=== PATIENT | female | born 1975 | race Caucasian/White ===

== ENCOUNTER 2018-01-26 09:56 | Observation (INO) | END 2018-01-27 15:40 | disposition home or self-care (01) ==

== ENCOUNTER 2018-06-29 17:25 | Observation (INO) | END 2018-07-01 13:11 | disposition home or self-care (01) ==

== ENCOUNTER 2019-05-10 06:20 | Inpatient (IN) | payer BC, OTHER ==
[~2019-05-10] VITALS: Ht 157.5 cm; Wt 67.5 kg
[2019-05-10] VITALS (29 sets, daily range): BP systolic 60–140; BP diastolic 58–85; PULSE 67–98; RESP 12–41; Ht 157.5 cm; Wt 67.5 kg
[~2019-05-10 06:20] MED LIST: CETI1TAB6 PO; CYCL10TA7 PO; ELET20TA PO; SIMV20TA PO; TOPI25CA2 PO; TRAM50TA PO
[2019-05-10] MEDS ORDERED: CEFAZOLIN 2 GM/50 ML (PMX) 50 ML IVPB ONE (07:00)
[2019-05-10] MEDS ORDERED: LACTATED RINGER'S 1,000 ML (ENTER RATE) IV ONE (07:00)
[2019-05-10] MEDS ORDERED: POLYMYXIN/BACITRACIN 1L IRRIG ONE (07:07)
[2019-05-10] MEDS ORDERED: GELATIN SIZE 100 SPONGE ONE (07:07)
[2019-05-10] MEDS ORDERED: THROMBIN 5000 UNIT VIAL ONE (07:07)
[2019-05-10] MEDS ORDERED: SURGIFOAM POWDER 1 GM KIT ONE (07:07)
[2019-05-10] MEDS ORDERED: BUPIVACAINE 0.25%/EPI (SDV) 30 ML INJ ONE ×2 (07:07→11:36)
--- NOTE | 2019-05-10 07:21 | HPN ---
Date/Time of Note Date/Time of Note DATE: 05/10/19 TIME: 07:21 Interval H&P Admission Note Pt. seen H&P reviewed: No system changes BLAIRE SINGH MD May 10, 2019 07:21
[2019-05-10] MEDS ORDERED: GABA300C16 ORAL (07:26)
[2019-05-10] MEDS ORDERED: MELO15TA30 ORAL (07:26)
[2019-05-10] MEDS ORDERED: TRAM50TA2 ORAL (07:26)
[2019-05-10] MEDS ORDERED: MULTI PO (07:26)
[2019-05-10] MEDS ORDERED: TOPI50TA13 ORAL (07:26)
--- NOTE | 2019-05-10 07:29 | PREAC ---
Date/Time of Note Date/Time of Note DATE: 05/10/19 TIME: 07:28 Anesthesia Eval and Record Evaluation Time Pre-Procedure Interview DATE: 05/10/19 TIME: 07:28 Age 44 Sex female NPO: 8 hrs Preoperative diagnosis disc degenerative disorder Planned procedure [id number] anterior fusion Past Medical History Past Medical History: Includes Cardio: Dyslipidemia Pulm: Smoking Hx Neuro: Peripheral neuropathy Musculoskeletal: Osteoarthritis Surgery & Anesthesia Issues No known issue Meds Anticoagulation: No Beta Jessica within 24 hr: No Reason Beta Jessica not given: Pt. not on B-Jessica Reported Medications Topiramate* (Topiramate*) 50 Mg Tablet, 1 TAB ORAL QHS 05/10/19 Multivitamins* (Theragran*) 1 Tab Tab, 1 TAB PO DAILY, TAB 05/10/19 Meloxicam* (Mobic*) 15 Mg Tablet, 1 TAB ORAL QPM 05/10/19 Tramadol HCl (Tramadol HCl) 50 Mg Tablet, 1 TAB ORAL BID 05/10/19 Gabapentin* (Gabapentin*) 300 Mg Capsule, 1 CAP ORAL BID 05/10/19 Eletriptan Hydrobromide (Relpax) 20 Mg Tablet, 40-80 MG PO DAILY PRN for MIGRANES, TAB 06/29/18 Cyclobenzaprine Hcl* (Cyclobenzaprine Hcl*) 10 Mg Tablet, 10 MG PO BID PRN for MUSCLE SPASMS, #60 TAB 06/29/18 Simvastatin* (Zocor*) 20 Mg Tablet, 20 MG PO QHS, #30 TAB 06/29/18 Discontinued Reported Medications Cetirizine/Pseudoephedrine (Zyrtec-D) 5-120 Mg Tab.er.12h, 1 TAB PO DAILY PRN for ALLERGIC REACTION, TAB 06/29/18 Tramadol Hcl* (Ultram*) 50 Mg Tablet, 50 MG PO BID PRN for PAIN, TAB 06/29/18 Topiramate* (Topiramate*) 25 Mg Cap.sprink, 50 MG PO DAILY, CAP 06/29/18 Current Medications Cefazolin Sodium/ Dextrose 50 ml @ 100 mls/hr PRE-OP ONCE IVPB ; Start 05/10/19 at 07:00; Stop 05/10/19 at 07:29 Meds reviewed: Yes Allergies Coded Allergies: No Known Allergies (Verified Allergy, Unknown, 05/10/19) Allergies Reviewed: Yes Labs/Studies Labs Reviewed: Reviewed by anesthesiologist test: Negative Pre-procedure Exam Last vitals Vital Signs Date Temp Pulse Resp B/P (MAP) Pulse Ox O2 O2 Flow FiO2 Time Delivery Rate 05/10/19 97.3 82 18 112/72 93 07:14 (85) Airway: Adequate mouth opening, Adequate thyromental dist Mallampati: Mallampati III Teeth: Normal Lung: Normal Heart: Normal ASA Physical Status ASA physical status: 2 Emergency: None Pre-operative Attestations Prior to commencing anesthesia and surgery, the patient was re-evaluated, there was verification of: *The patient's identity *The results of appropriate recent lab work and preoperative vital signs *The above evaluation not changing prior to induction *Anesthetic plan, risk benefits, alternative and complications discussed with pa tient/family; questions answered; patient/family understands, accepts and wishes to proceed. JOANNE MEEHAN DO May 10, 2019 07:29
[2019-05-10] MEDS ORDERED: MEPERIDINE 25 MG INJ IV PRN (07:30)
[2019-05-10] MEDS ORDERED: ONDANSETRON 4 MG INJ IV PRN ×2 (07:30→14:00)
[2019-05-10] MEDS ORDERED: LABETALOL HCL 20MG INJ IV PRN (07:30)
[2019-05-10] MEDS ORDERED: LORAZEPAM 2 MG INJ IV PRN (07:30)
[2019-05-10] MEDS ORDERED: HYDROmorphONE 1 MG/5 ML IV SYRINGE IV PRN ×3 (07:30)
[2019-05-10] MEDS ORDERED: LIDOCAINE 1% (MDV) 20 ML INJ ONE (07:49)
[2019-05-10] MEDS ORDERED: EPINEPHrine 0.1 MG/ML SYG ONE (07:49)
[2019-05-10] MEDS ORDERED: PHENYLephrine (100 MCG/ML) 10ML SYG ONE (07:49)
[2019-05-10] MEDS ORDERED: CA CHLORIDE 10% 10 ML SYRINGE ONE (07:49)
[2019-05-10] MEDS ORDERED: PROPOFOL 20 ML ONE (07:49)
[2019-05-10] MEDS ORDERED: MIDAZOLAM 1 MG/ML 2 ML INJ ONE ×2 (07:49→12:16)
[2019-05-10] MEDS ORDERED: SUCCINYLCHOLINE CHLORIDE 100 MG/5 ML SYG IV ONE (07:49)
[2019-05-10] MEDS ORDERED: DESFLURANE 15 MIN ONE (07:49)
[2019-05-10] MEDS ORDERED: DEXAMETHASONE 4 MG/ML 5 ML INJ ONE (08:16)
[2019-05-10] MEDS ORDERED: CEFAZOLIN 1 GM INJ ONE ×2 (08:16→12:50)
[2019-05-10] MEDS ORDERED: ONDANSETRON 4 MG INJ ONE ×2 (08:16→12:50)
[2019-05-10] MEDS ORDERED: PHENYLephrine 10 MG INJ ONE ×2 (09:35→12:16)
[2019-05-10] MEDS ORDERED: ROPIVACAINE 0.5 % 30 ML VIAL ONE (12:59)
--- NOTE | 2019-05-10 13:32 | OPR ---
Date/Time of Note Date/Time of Note DATE: 05/10/19 TIME: 13:21 Operative Report Free Text/Dictation DATE OF OPERATION: 05/10/2019 PREOPERATIVE DIAGNOSES: 1. Grade 1 L4-5 degenerative spondylolisthesis with stenosis and left sided L4 and L5 radiculopathy POSTOPERATIVE DIAGNOSES: 1. Grade 1 L4-5 degenerative spondylolisthesis with stenosis and left sided L4 and L5 radiculopathy OPERATION PERFORMED: 1. Anterior lumbar interbody fusion via transpsoas approach L4-5 2. Placement of anterior interbody device L4-5 3. Placement of posterior spinal segmental instrumentation L4-5 4. Posterior spinal fusion L4-5 5. Use of morselized allograft bone. 6. Interpretation of neuromonitoring SURGEON: Blaire Singh MD ANESTHESIA: General endotracheal. ESTIMATED BLOOD LOSS: <50 cc SURGICAL INDICATION: The patient is a 44 year-old female who presents with an increasing history of back and left sided leg pain. She has a past surgical hist ory significant for a L4-5 left sided decompression and microdiskectomy x2. The patient was found to have an unstable spondylolisthesis at L4-5 with associated stenosis. The patient had failed conservative treatments. Risks, benefits and alternatives to an anterior and posterior spinal fusion with instrumentation were explained to the patient including but not exclusive of bleeding, infection, visceral injury, nerve injury, nonunion, instrumentation failure, lack of symptom relief, myocardial infarction, stroke, and pulmonary embolism, and they wished to proceed. DESCRIPTION OF TECHNIQUE: The patient was identified in the preoperative area and taken to the operating room. Rapid induction of general endotracheal anesthesia was performed. Patient was given 2 g of cefazolin for prophylaxis. The patient was then placed in the (left side up) lateral decubitus position with an axillary roll placed. Tape was applied across the torso and down the legs for further stabilization of the patient to the table. The left flank was then prepped and draped in the usual sterile manner. A time out was held. Using intraoperative fluoroscopy, the L4-5 disc space was clearly identified. The skin was injected using 0.25% Marcaine with epinephrine. A posterolateral incision was then created using a 10 blade. Further dissection through soft tissue was performed bluntly using Metzenbaum scissors to enter the retroperitoneal space. Manual palpation was used to palpate the peritoneum and the peritoneum was swept in a ventral direction. A direct lateral incision was then created using a 10 blade. Further dissection through soft tissue was again performed bluntly using Metzenbaum scissors, guided manually through the posterolateral incision. The retroperitoneal space was then directly entered. The starting dilator was guided down to the lateral aspect of the psoas muscle, while protecting the peritoneum. Both intraoperative fluoroscopy, as well as neuromonitoring were used to guide the dilator down to the lateral aspect of the disc space, while avoiding the lumbar plexus. A guidewire was then passed through the dilator into the disc space itself. Sequential dilation was performed. A final retractor was applied and stabilized to the table. The retractor was opened gently, just enough to visualize the lateral aspect of the disc space. Fibers of the psoas muscle were directly visualized and gently swept ventrally using a retractor. Again, the surgical field was probe to ensure that no neural elements remained in the surgical field itself. Attention was turned toward the anterior lumbar interbody fusion at L4-5. The lateral anulus was incised using a 15 blade. Disk material was then removed using pituitary rongeurs and curettes. Care was taken to release the contralateral anulus using Fan elevators. The endplates were then decorticated using a rasp. Attention was turned toward placement of the anterior interbody device at L4-5. Trial spacers were inserted. A 12 x 18 x 50 mm lordotic tab PEEK cage was then selected and filled using Osteocel pro morcellized allograft bone with stem cells. The tab cage was used to help prevent cage migration given instability at this level. The cage was inserted into the disc space and malleted into place over slides. AP and lateral views of fluoroscopy confirmed the appropriate placement of the cage. The cage was stabilized with a 40 mm screw at L4. The wound was irrigated copiously using normal saline. The fascia was then closed using 0 Vicryl in interrupted fashion. Subcutaneous tissue was closed using 2-0 Vicryl in interrupted fashion. Skin was closed using a running 4-0 Monocryl stitch. The wounds were dressed using Dermabond, sterile gauze and Tegaderm. Attention was turned toward placement of posterior spinal segmental instrumentation at L4-5 after the patient was transferred to a Iam table in prone position . The surgical site was prepped and draped is standard fashion. A time out was held. Using intraoperative fluoroscopy, the pedicles were identified at each level. Care was taken to alter the fluoroscopic view to have a true AP at each level. Jamshidi needles were then passed down to the lateral aspect of the pedicles through stab incisions. The Jamshidi needles were malleted into the pedicles. Care was taken to ensure that the needles did not pass the medial wall of the pedicle on the AP view prior to checking that the needle was past the posterior wall of the vertebral body. The needles were then malleted further into the vertebral bodies themselves. Guidewires were passed through the needles and the needles were removed. Taps were applied over the guidewires. Screws were then placed bilaterally into the vertebral bodies. AP a nd lateral views confirmed appropriate placement of the instrumentation. Attention was turned toward the posterior spinal fusion at L4-5. Rods were selected of the appropriate length and placed into the screw heads. End caps were applied and final tightening was performed using a [id number]-azavbh wrench. The exposed the facet joints were decorticated using a high-speed bur. A small remaining amount of Osteocel pro was placed into the facet joints to facilitate the posterior fusion. The wound was irrigated copiously using normal saline. The fascia was then closed using 0 Vicryl in interrupted fashion. Subcutaneous tissue was closed using 2-0 Vicryl in interrupted fashion. Skin was closed using a running 4-0 Monocryl stitch. The wounds were dressed using Dermabond, sterile gauze and Tegaderm. The patient was returned to the supine position. The patient was extubated immediately postoperatively and taken to the recovery room in stable condition. IMPLANTS USED: 1. NuVasive PEEK XLIF cage [id number] lordotic tab cage w/ 40mm L4 screw 2. NuVasive percutaneous pedicle screw system; 6.5 x40 mm x4 (L4) 3. 40mm rods x 2 4. Osteocel pro morcellized allograft bone with stem cells. Procedure Date: May 10, 2019 Preoperative Diagnosis 1. Grade 1 L4-5 degenerative spondylolisthesis with stenosis and left sided L4 and L5 radiculopathy Postoperative Diagnosis 1. Grade 1 L4-5 degenerative spondylolisthesis with stenosis and left sided L4 and L5 radiculopathy Operation/Procedure Performed 1. Anterior lumbar interbody fusion via transpsoas approach L4-5 2. Placement of anterior interbody device L4-5 3. Placement of posterior spinal segmental instrumentation L4-5 4. Posterior spinal fusion L4-5 5. Use of morselized allograft bone. 6. Interpretation of neuromonitoring Surgeon see signature line Sales Service Representative BERONICA Muñoz Anesthesia Type: general Estimated Blood Loss: 10 - 50 ml's Transfusion none Specimen none Grafts/Implants IMPLANTS USED: 1. NuVasive PEEK XLIF cage [id number] lordotic tab cage w/ 40mm L4 screw 2. NuVasive percutaneous pedicle screw system; 6.5 x40 mm x4 (L4) 3. 40mm rods x 2 4. Osteocel pro morcellized allograft bone with stem cells. Complications none Pt Condition Post Procedure: stable Disposition: PACU Procedure Description The patient was identified in the preoperative area and taken to the operating room. Rapid induction of general endotracheal anesthesia was performed. Patient was given 2 g of cefazolin for prophylaxis. The patient was then placed in the (left side up) lateral decubitus position with an axillary roll placed. Tape was applied across the torso and down the legs for further stabilization of the patient to the table. The left flank was then prepped and draped in the usual sterile manner. A time out was held. Using intraoperative fluoroscopy, the L4-5 disc space was clearly identified. The skin was injected using 0.25% Marcaine with epinephrine. A posterolateral i ncision was then created using a 10 blade. Further dissection through soft tissue was performed bluntly using Metzenbaum scissors to enter the retroperitoneal space. Manual palpation was used to palpate the peritoneum and the peritoneum was swept in a ventral direction. A direct lateral incision was then created using a 10 blade. Further dissection through soft tissue was again performed bluntly using Metzenbaum scissors, guided manually through the posterolateral incision. The retroperitoneal space was then directly entered. The starting dilator was guided down to the lateral aspect of the psoas muscle, while protecting the peritoneum. Both intraoperative fluoroscopy, as well as neuromonitoring were used to guide the dilator down to the lateral aspect of the disc space, while avoiding the lumbar plexus. A guidewire was then passed through the dilator into the disc space itself. Sequential dilation was performed. A final retractor was applied and stabilized to the table. The retractor was opened gently, just enough to visualize the lateral aspect of the disc space. Fibers of the psoas muscle were directly visualized and gently swept ventrally using a retractor. Again, the surgical field was probe to ensure that no neural elements remained in the surgical field itself. Attention was turned toward the anterior lumbar interbody fusion at L4-5. The lateral anulus was incised using a 15 blade. Disk material was then removed using pituitary rongeurs and curettes. Care was taken to release the contralateral anulus using Fan elevators. The endplates were then decorticated using a rasp. Attention was turned toward placement of the anterior interbody device at L4-5. Trial spacers were inserted. A 12 x 18 x 50 mm lordotic tab PEEK cage was then selected and filled using Osteocel pro morcellized allograft bone with stem cells. The tab cage was used to help prevent cage migration given instability at this level. The cage was inserted into the disc space and malleted into place over slides. AP and lateral views of fluoroscopy confirmed the appropriate placement of the cage. The cage was stabilized with a 40 mm screw at L4. The wound was irrigated copiously using normal saline. The fascia was then closed using 0 Vicryl in interrupted fashion. Subcutaneous tissue was closed using 2-0 Vicryl in interrupted fashion. Skin was closed using a running 4-0 Monocryl stitch. The wounds were dressed using Dermabond, sterile gauze and Tegaderm. Attention was turned toward placement of posterior spinal segmental instrumentation at L4-5 after the patient was transferred to a Iam table in prone position . The surgical site was prepped and draped is standard fashion. A time out was held. Using intraoperative fluoroscopy, the pedicles were identified at each level. Care was taken to alter the fluoroscopic view to have a true AP at each level. Jamshidi needles were then passed down to the lateral aspect of the pedicles through stab incisions. The Jamshidi needles were malleted into the pedicles. Care was taken to ensure that the needles did not pass the medial wall of the pedicle on the AP view prior to checking that the needle was past the posterior wall of the vertebral body. The needles were then malleted further into the vertebral bodies themselves. Guidewires were passed through the needles and the needles were removed. Taps were applied over the guidewires. Screws were then placed bilaterally into the vertebral bodies. AP and lateral views confirmed appropriate placement of the instrumentation. Attention was turned toward the posterior spinal fusion at L4-5. Rods were selected of the appropriate length and placed into the screw heads. End caps were applied and final tightening was performed using a [id number]-yrzzmv wrench. The exposed the facet joints were decorticated using a high-speed bur. A small remaining amount of Osteocel pro was placed into the facet joints to facilitate the posterior fusion. The wound was irrigated copiously using normal saline. The fascia was then closed using 0 Vicryl in interrupted fashion. Subcutaneous tissue was closed using 2-0 Vicryl in interrupted fashion. Skin was closed using a running 4-0 Monocryl stitch. The wounds were dressed using Dermabond, sterile gauze and Tegaderm. The patient was returned to the supine position. The patient was extubated immediately postoperatively and taken to the recovery room in stable condition. BLAIRE SINGH MD May 10, 2019 13:32
--- NOTE | 2019-05-10 13:57 | PAC ---
Date/Time of Note Date/Time of Note DATE: 05/10/19 TIME: 13:56 Post-Anesthesia Notes Post-Anesthesia Note Last documented vital signs Vital Signs Date Temp Pulse Resp B/P (MAP) Pulse Ox O2 O2 Flow FiO2 Time Delivery Rate 05/10/19 97.9 90 18 110/65 97 1357 Activity: WNL Respiratory function: WNL Cardiovascular function: WNL Mental status: Baseline Pain reasonably controlled: Yes Hydration appropriate: Yes Nausea/Vomiting absent: Yes JOANNE MEEHAN DO May 10, 2019 13:57
[2019-05-10] MEDS ORDERED: PROCHLORPERAZINE 10 MG TAB PO PRN (14:00)
[2019-05-10] MEDS ORDERED: HYDROCODONE/APAP (5/325) TAB PO PRN (14:00)
[2019-05-10] MEDS ORDERED: AL HYDROX/MG HYDROX/SIMETH 30 ML CUP PO PRN (14:00)
[2019-05-10] MEDS ORDERED: NALOXONE (0.4 MG/ML) INJ IV PRN (14:00)
[2019-05-10] MEDS ORDERED: ACETAMINOPHEN 325 MG TAB PO PRN (14:00)
[2019-05-10] MEDS: HYDROmorphONE 0.2 MG/ML PCA IV SCH (14:27)
[2019-05-10] MEDS ORDERED: SUMATRIPTAN 50 MG TAB PO ONE (15:00)
[2019-05-10] MEDS ORDERED: DEXAMETHASONE 10 MG/ML 1 ML INJ IV ONE (16:00)
[2019-05-10] MEDS: CYCLOBENZAPRINE 10 MG TAB PO PRN (18:10)
[2019-05-10] MEDS: CEFAZOLIN 1 GM/50 ML (PMX) 50 ML IVPB SCH ×2 (18:10→23:26)
[2019-05-10] MEDS: GABAPENTIN 300 MG CAP PO SCH (20:34)
[2019-05-10] MEDS: ATORVASTATIN 10 MG TAB PO SCH (20:34)
[2019-05-10] MEDS: TOPIRAMATE 25 MG TAB PO SCH (20:34)
[2019-05-10] MEDS: D5W-0.45 NACL + KCL 20 MEQ 1,000 ML IV SCH (20:34)
--- NOTE | 2019-05-11 00:21 | CONS ---
DATE OF ADMISSION: 05/10/2019 DATE OF CONSULTATION: 05/10/2019 Thank you very much for allowing me to evaluate this 44-year-old female who just underwent lumbar francisco k surgery. HISTORICAL EVENTS: As you well know, this patient has had unrelenting low back pain, you having eval uated her last in April of 2019. At that time, she indicated she had a prior left L4-L5 decompression , having had a surgery in 06/2018, revision in 2017. Because of continued left-sided leg pain and re lated L5 nerve root irritation and because of failure of conservative therapy to provide significant relief, elected to proceed with repeat surgical intervention. Presently in recovery, she is reasonab ly comfortable without cough, wheezing, shortness of breath, nausea, vomiting, abdominal or chest dona n. PAST MEDICAL HISTORY: Hyperlipidemia and migraine headaches, history of abnormal glucose tolerance, prior cholecystectomy and . SOCIAL HISTORY: She does drink wine. She does not smoke. FAMILY HISTORY: Positive for hyperlipidemia, diabetes. MEDICATIONS: Prior to admission: 1. Cyclobenzaprine 10 mg t.i.d. p.r.n. 2. Relpax 40 mg per day p.r.n. 3. Tramadol 50 mg b.i.d. p.r.n. 4. Topamax 50 mg at night. 5. Zocor 20 mg. 6. Gabapentin 300 mg. t.i.d. 7. Meloxicam 7.5 per day. 8. Minivelle 0.025 mg per day. 9. Vitamin D3 of 50,000 units per day. PHYSICAL EXAMINATION: GENERAL: [place] female in no acute distress. VITAL SIGNS: BP 114/78, pulse 72, respirations were 18, afebrile. EYES: Extraocular muscles were full. NOSE, MOUTH, AND THROAT: Normal. NECK: Supple. There was no jugular venous distention, thyroid enlargement or adenopathy. Carotids 2+, no bruits. LUNGS: Clear. HEART: Rhythm regular, no murmur. No third or fourth sound. ABDOMEN: Nontender. Liver and spleen were not palpable. No mass or tenderness were noted. EXTREMITIES: No edema, no calf tenderness. NEUROLOGIC: No lateralizing motor weakness. IMPRESSION: 1. Stable postop lumbar back surgery. 2. History of migraine headaches. Will reorder Relpax or equivalent if indeed recurrent migraine he adache occurs. 3. Hyperlipidemia. We will continue statin therapy. 4. We will follow daily for signs and symptoms of thromboembolic disease. Dictated By: MICHELLE WILLOUGHBY MD MR/MARTIN Conf#: [id number] DID#: [id number] CC: BLAIRE SINGH MD;*EndCC*
[2019-05-11] MEDS: D5W-0.45 NACL + KCL 20 MEQ 1,000 ML IV SCH ×2 (06:05→17:31)
[2019-05-11] MEDS: CEFAZOLIN 1 GM/50 ML (PMX) 50 ML IVPB SCH ×2 (06:05→11:58)
--- NOTE | 2019-05-11 08:18 | CONS ---
Assessment/Plan Assessment/Plan Assessment/Plan (Daily) 1. Stable post op lumbar back surgery 2. Hx elev chol, statin continued 3. Labs rev 4. Hx migraine PAL, quiescent Consultation Date/Type/Reason Admit Date/Time May 10, 2019 at 06:20 Initial Consult Date Date/Time of Note DATE: 05/11/19 TIME: 08:16 Detailed Summary Respiratory: No shortness of breath Cardiovascular: No chest pain, No orthopenea Gastrointestinal: no complaints Genitourinary: other (good in place) Musculoskeletal: back pain (moderate) Exam/Review of Systems Exam Vitals Vital Signs Date Temp Pulse Resp B/P (MAP) Pulse Ox O2 O2 Flow FiO2 Time Delivery Rate 05/11/19 17 06:02 05/10/19 98.0 68 112/73 99 Nasal 2.0 23:22 (86) Cannula Intake and Output 05/10/19 05/10/19 05/11/19 1515:00 23:00 07:00 IntakeIntake Total 5000 ml 1390 ml 1450 ml OutputOutput Total 1930 ml 800 ml 2500 ml BalanceBalance 3070 ml 590 ml -1050 ml Neck: No jvd Respiratory: clear to auscultation Cardiovascular: regular rate and rhythm Gastrointestinal: soft Extremities: No edema, No tenderness Results Result Diagram: 05/11/19 0441 05/11/19 0441 Results 24hrs Laboratory Tests Test 05/11/19 04:41 White Blood Count 9.3 # Red Blood Count 3.73 L Hemoglobin 11.0 L Hematocrit 33.0 L Mean Corpuscular Volume 88.5 Mean Corpuscular Hemoglobin 29.5 Mean Corpuscular Hemoglobin Concent 33.3 Red Cell Distribution Width 12.8 Platelet Count 137 #L Mean Platelet Volume 10.4 Immature Granulocytes % 0.400 Neutrophils % 77.0 Lymphocytes % 14.7 L Monocytes % 7.8 Eosinophils % 0.0 Basophils % 0.1 Nucleated Red Blood Cells % 0.0 Immature Granulocytes # 0.040 H Neutrophils # 7.2 Lymphocytes # 1.4 Monocytes # 0.7 Eosinophils # 0.0 Basophils # 0.0 Nucleated Red Blood Cells # 0.0 Sodium Level 146 H Potassium Level 4.6 Chloride Level 113 H Carbon Dioxide Level 26 Anion Gap 7 Blood Urea Nitrogen 6 L Creatinine 0.60 Est Glomerular Filtrat Rate mL/min > 60 Glucose Level 134 Calcium Level 9.1 Phosphorus Level 3.6 Magnesium Level 1.9 Medications Medication Current Medications Acetaminophen/ Hydrocodone Bitart ([place] (5/325)) 1 tab Q4H PRN PO .PAIN 1-5; Start 05/10/19 at 14:00 Acetaminophen/ Hydrocodone Bitart ([place] (5/325)) 2 tab Q4H PRN PO .PAIN 6-10; Start 05/10/19 at 14:00 Cefazolin Sodium 50 ml @ 100 mls/hr Q6 IVPB Last administered on 05/11/19at 06:05; Admin Dose 100 MLS/HR; Start 05/10/19 at 18:00; Stop 05/11/19 at 12:29 Prochlorperazine (Compazine) 10 mg Q4H PRN PO NAUSEA/VOMITING; Start 05/10/19 at 14:00 Ondansetron HCl (Zofran Inj) 4 mg Q6H PRN IV NAUSEA/VOMITING Last administered on 05/10/19at 18:10; Admin Dose 4 MG; Start 05/10/19 at 14:00 Al Hydrox/Mg Hydrox/Simethicone (Mag-Al Plus) 15 ml Q4H PRN PO .CONSTIPATION; Start 05/10/19 at 14:00 Docusate Sodium (Colace) 100 mg BID PO ; Start 05/11/19 at 09:00 Acetaminophen (Tylenol Tab) 650 mg Q4H PRN PO TEMP GREATER THAN 101F OR PAL; Start 05/10/19 at 14:00 IV Flush (NS 3 ml) 3 ml PER PROTOCOL IV ; Start 05/10/19 at 14:00 Hydromorphone HCl (Dilaudid BEVERAGE DISTILLER) Q4PCA IV Last administered on 05/10/19at 14:27; Admin Dose 6 MG; Start 05/10/19 at 14:00 Naloxone HCl (Narcan) 0.2 mg Q2M PRN IV RR 8 BREATHS/MIN OR LESS; Start 05/10/19 at 14:00 Cyclobenzaprine HCl (Flexeril) 10 mg BID PRN PO MUSCLE SPASMS Last administered on 05/10/19at 18:10; Admin Dose 10 MG; Start 05/10/19 at 16:00 Gabapentin (Neurontin) 300 mg BID PO Last administered on 05/10/19at 20:34; Admin Dose 300 MG; Start 05/10/19 at 21:00 Miscellaneous Information 40 mg DAILY PRN PO MIGRANES; Start 05/10/19 at 16:00; Status UNV Atorvastatin Calcium (Lipitor) 10 mg QHS PO Last administered on 05/10/19at 20:34; Admin Dose 10 MG; Start 05/10/19 at 21:00 Topiramate (Topamax) 50 mg HS PO Last administered on 05/10/19at 20:34; Admin Dose 50 MG; Start 05/10/19 at 21:00 Potassium Chloride/Dextrose/ Sod Cl 1,000 ml @ 100 mls/hr Q10H IV Last admi nistered on 05/11/19at 06:05; Admin Dose 100 MLS/HR; Start 05/10/19 at 17:30 MICHELLE WILLOUGHBY MD May 11, 2019 08:17
[2019-05-11] MEDS ORDERED: DEXAMETHASONE 10 MG/ML 1 ML INJ IV ONE (09:00)
[2019-05-11] MEDS: DOCUSATE SODIUM 100 MG CAP PO SCH ×2 (09:46→22:17)
[2019-05-11] MEDS: GABAPENTIN 300 MG CAP PO SCH ×2 (09:46→22:17)
[2019-05-11] MEDS ORDERED: SUMATRIPTAN 50 MG TAB PO SCH (10:00)
[2019-05-11] MEDS ORDERED: SUMATRIPTAN 50 MG TAB PO ONE (10:00)
[2019-05-11] MEDS: SUMATRIPTAN 50 MG TAB PO PRN ×2 (10:11→11:58)
--- NOTE | 2019-05-11 12:36 | CONS ---
Consultation Date/Type/Reason Admit Date/Time May 10, 2019 at 06:20 Initial Consult Date Date/Time of Note DATE: 05/11/19 TIME: 12:34 24 HR Interval Summary Free Text/Dictation S: 44 yo Female POD#1 s/p L4-5 lateral (left side up) interbody fusion w/ PSIF. patient tolerating a regular diet. pain controlled w/ dilaudid STITCHER FEEDER. No acute events over-night. Complains of left hip pain at side of approach. O: Vital Signs Date Temp Pulse Resp B/P (MAP) Pulse Ox O2 O2 Flow FiO2 Time Delivery Rate 05/11/19 06:02 Gen: AAOx3, NAD Spine: dressing C/D/I, 5/5 Right HF/KE/TA/GS, Left LE 3/5 HF, 3+/5 KE, 4/5 TA/GS/EHL A/P: 44 yo Female POD#1 s/p L4-5 lateral (left side up) interbody fusion w/ PSIF. Left HF and KE weakness likely secondary to approach (left sided transpsas) 1. continue STITCHER FEEDER 2. Continue good 3. OOB w/ PT 4. appreciate med recs Exam/Review of Systems Exam Vitals Vital Signs Date Temp Pulse Resp B/P (MAP) Pulse Ox O2 O2 Flow FiO2 Time Delivery Rate 05/11/19 17 06:02 05/10/19 98.0 68 112/73 99 Nasal 2.0 23:22 (86) Cannula Intake and Output 05/10/19 05/10/19 05/11/19 1515:00 23:00 07:00 IntakeIntake Total 5000 ml 1390 ml 1450 ml OutputOutput Total 1930 ml 800 ml 2500 ml BalanceBalance 3070 ml 590 ml -1050 ml Results Result Diagram: 05/11/19 0441 05/11/19 0441 Results 24hrs Laboratory Tests Test 05/11/19 04:41 White Blood Count 9.3 # Red Blood Count 3.73 L Hemoglobin 11.0 L Hematocrit 33.0 L Mean Corpuscular Volume 88.5 Mean Corpuscular Hemoglobin 29.5 Mean Corpuscular Hemoglobin Concent 33.3 Red Cell Distribution Width 12.8 Platelet Count 137 #L Mean Platelet Volume 10.4 Immature Granulocytes % 0.400 Neutrophils % 77.0 Lymphocytes % 14.7 L Monocytes % 7.8 Eosinophils % 0.0 Basophils % 0.1 Nucleated Red Blood Cells % 0.0 Immature Granulocytes # 0.040 H Neutrophils # 7.2 Lymphocytes # 1.4 Monocytes # 0.7 Eosinophils # 0.0 Basophils # 0.0 Nucleated Red Blood Cells # 0.0 Sodium Level 146 H Potassium Level 4.6 Chloride Level 113 H Carbon Dioxide Level 26 Anion Gap 7 Blood Urea Nitrogen 6 L Creatinine 0.60 Est Glomerular Filtrat Rate mL/min > 60 Glucose Level 134 Calcium Level 9.1 Phosphorus Level 3.6 Magnesium Level 1.9 Medications Medication Current Medications Acetaminophen/ Hydrocodone Bitart ([place] (5/325)) 1 tab Q4H PRN PO .PAIN 1-5; Start 05/10/19 at 14:00 Acetaminophen/ Hydrocodone Bitart ([place] (5/325)) 2 tab Q4H PRN PO .PAIN 6-10; Start 05/10/19 at 14:00 Prochlorperazine (Compazine) 10 mg Q4H PRN PO NAUSEA/VOMITING; Start 05/10/19 at 14:00 Ondansetron HCl (Zofran Inj) 4 mg Q6H PRN IV NAUSEA/VOMITING Last administered on 05/10/19at 18:10; Admin Dose 4 MG; Start 05/10/19 at 14:00 Al Hydrox/Mg Hydrox/Simethicone (Mag-Al Plus) 15 ml Q4H PRN PO .CONSTIPATION; Start 05/10/19 at 14:00 Docusate Sodium (Colace) 100 mg BID PO Last administered on 05/11/19at 09:46; Ad min Dose 100 MG; Start 05/11/19 at 09:00 Acetaminophen (Tylenol Tab) 650 mg Q4H PRN PO TEMP GREATER THAN 101F OR PAL; Start 05/10/19 at 14:00 IV Flush (NS 3 ml) 3 ml PER PROTOCOL IV ; Start 05/10/19 at 14:00 Hydromorphone HCl (Dilaudid STITCHER FEEDER) Q4PCA IV Last administered on 05/10/19at 14:27; Admin Dose 6 MG; Start 05/10/19 at 14:00 Naloxone HCl (Narcan) 0.2 mg Q2M PRN IV RR 8 BREATHS/MIN OR LESS; Start 05/10/19 at 14:00 Cyclobenzaprine HCl (Flexeril) 10 mg BID PRN PO MUSCLE SPASMS Last administered on 05/10/19 18:10; Admin Dose 10 MG; Start 05/10/19 at 16:00 Gabapentin (Neurontin) 300 mg BID PO Last administered on 05/11/19 09:46; Admin Dose 300 MG; Start 05/10/19 at 21:00 Miscellaneous Information 40 mg DAILY PRN PO MIGRANES; Start 05/10/19 at 16:00; Status UNV Atorvastatin Calcium (Lipitor) 10 mg QHS PO Last administered on 05/10/19 20:34; Admin Dose 10 MG; Start 05/10/19 at 21:00 Topiramate (Topamax) 50 mg HS PO Last administered on 05/10/19 20:34; Admin Dose 50 MG; Start 05/10/19 at 21:00 Potassium Chloride/Dextrose/ Sod Cl 1,000 ml @ 100 mls/hr Q10H IV Last administered on 05/11/19 06:05; Admin Dose 100 MLS/HR; Start 05/10/19 at 17:30 Sumatriptan Succinate (Imitrex) 50 mg ONCE@1200 PRN PO HEADACHE Last administered on 05/11/19 11:58; Admin Dose 50 MG; Start 05/11/19 at 10:00; Stop 05/11/19 at 19:00 BLAIRE SINGH MD May 11, 2019 12:36
[2019-05-11] MEDS: HYDROmorphONE 0.2 MG/ML PCA IV SCH (13:11)
[2019-05-11] MEDS ORDERED: SUMATRIPTAN 50 MG TAB PO PRN (16:30)
[2019-05-11 20:22] VITALS: BP 111/76; RESP 18
[2019-05-11] MEDS: ATORVASTATIN 10 MG TAB PO SCH (22:17)
[2019-05-11] MEDS: TOPIRAMATE 25 MG TAB PO SCH (22:17)
[2019-05-12 01:42] VITALS: BP 109/71; PULSE 80; RESP 18
[2019-05-12] MEDS: D5W-0.45 NACL + KCL 20 MEQ 1,000 ML IV SCH ×3 (03:34→18:14)
[2019-05-12 07:50] VITALS: BP 100/64; PULSE 84; RESP 18
[2019-05-12] MEDS ORDERED: DIPHENHYDRAMINE 25 MG CAP PO PRN (08:00)
--- NOTE | 2019-05-12 08:33 | CONS ---
Assessment/Plan Assessment/Plan Assessment/Plan (Daily) 1. Stable post op lumbar back surgery, doing quite well 2. Hx elev chol, statin continued 3. Labs rev 4. Hx migraine PAL, rec yesterday, today is quiet Consultation Date/Type/Reason Admit Date/Time May 10, 2019 at 06:20 Initial Consult Date Date/Time of Note DATE: 05/12/19 TIME: 08:32 Detailed Summary Respiratory: No cough, No shortness of breath Cardiovascular: No chest pain Gastrointestinal: No no complaints Genitourinary: other (good in place) Musculoskeletal: back pain (less then yesterday and c/o left groin pain and "numb" left thigh) Exam/Review of Systems Exam Vitals Vital Signs Date Temp Pulse Resp B/P (MAP) Pulse Ox O2 O2 Flow FiO2 Time Delivery Rate 05/12/19 98.7 84 18 100/64 100 Room Air 07:50 (76) CPAP 05/12/19 2.0 01:42 Intake and Output 05/11/19 05/11/19 05/12/19 1515:00 23:00 07:00 IntakeIntake Total 2980 ml 1900 ml OutputOutput Total 1800 ml 3700 ml BalanceBalance -1800 ml 2980 ml -1800 ml Neck: No jvd Respiratory: clear to auscultation Cardiovascular: regular rate and rhythm Gastrointestinal: soft Extremities: No edema, No tenderness Results Result Diagram: 05/12/19 0443 05/12/19 0443 Results 24hrs Laboratory Tests Test 05/12/19 04:43 05/12/19 07:16 White Blood Count 9.1 Red Blood Count 3.63 L Hemoglobin 10.5 L Hematocrit 32.1 L Mean Corpuscular Volume 88.4 Mean Corpuscular Hemoglobin 28.9 L Mean Corpuscular Hemoglobin Concent 32.7 Red Cell Distribution Width 12.9 Platelet Count 129 L Mean Platelet Volume 9.9 Immature Granulocytes % 0.300 Neutrophils % 66.8 Lymphocytes % 24.6 Monocytes % 8.0 Eosinophils % 0.1 Basophils % 0.2 Nucleated Red Blood Cells % 0.0 Immature Granulocytes # 0.030 Neutrophils # 6.1 Lymphocytes # 2.3 Monocytes # 0.7 Eosinophils # 0.0 Basophils # 0.0 Nucleated Red Blood Cells # 0.0 Sodium Level 143 Potassium Level 4.3 Chloride Level 110 Carbon Dioxide Level 28 Anion Gap 5 Blood Urea Nitrogen 9 Creatinine 0.52 Est Glomerular Filtrat Rate mL/min > 60 Glucose Level 120 Calcium Level 9.0 Phosphorus Level 2.6 Magnesium Level 2.1 Lab Scanned Report REFERENCE LAB Medications Medication Current Medications Acetaminophen/ Hydrocodone Bitart ([place] (5/325)) 1 tab Q4H PRN PO .PAIN 1-5; Start 05/10/19 at 14:00 Acetaminophen/ Hydrocodone Bitart ([place] (5/325)) 2 tab Q4H PRN PO .PAIN 6-10; Start 05/10/19 at 14:00 Prochlorperazine (Compazine) 10 mg Q4H PRN PO NAUSEA/VOMITING; Start 05/10/19 at 14:00 Ondansetron HCl (Zofran Inj) 4 mg Q6H PRN IV NAUSEA/VOMITING Last administered on 05/10/19at 18:10; Admin Dose 4 MG; Start 05/10/19 at 14:00 Al Hydrox/Mg Hydrox/Simethicone (Mag-Al Plus) 15 ml Q4H PRN PO .CONSTIPATION; Start 05/10/19 at 14:00 Docusate Sodium (Colace) 100 mg BID PO Last administered on 05/11/19at 22:17; Admin Dose 100 MG; Start 05/11/19 at 09:00 Acetaminophen (Tylenol Tab) 650 mg Q4H PRN PO TEMP GREATER THAN 101F OR PAL; Start 05/10/19 at 14:00 IV Flush (NS 3 ml) 3 ml PER PROTOCOL IV ; Start 05/10/19 at 14:00 Hydromorphone HCl (Dilaudid [employer]) D/C AT 1,315. Q4PCA IV Last administered on 05/11/19at 13:11; Admin Dose 6 MG; Start 05/10/19 at 14:00 Naloxone HCl (Narcan) 0.2 mg Q2M PRN IV RR 8 BREATHS/MIN OR LESS; Start 05/10/19 at 14:00 Cyclobenzaprine HCl (Flexeril) 10 mg BID PRN PO MUSCLE SPASMS Last administered on 05/10/19at 18:10; Admin Dose 10 MG; Start 05/10/19 at 16:00 Gabapentin (Neurontin) 300 mg BID PO Last administered on 05/11/19at 22:17; Admin Dose 300 MG; Start 05/10/19 at 21:00 Sumatriptan Succinate (Imitrex) 100 mg DAILY PRN PO MIGRAINE; Start 05/11/19 at 16:30 Atorvastatin Calcium (Lipitor) 10 mg QHS PO Last administered on 05/11/19at 22:17; Admin Dose 10 MG; Start 05/10/19 at 21:00 Topiramate (Topamax) 50 mg HS PO Last administered on 05/11/19at 22:17; Admin Dose 50 MG; Start 05/10/19 at 21:00 Potassium Chloride/Dextrose/ Sod Cl 1,000 ml @ 100 mls/hr Q10H IV Last administered on 05/12/19at 03:34; Admin Dose 100 MLS/HR; Start 05/10/19 at 17:30 Diphenhydramine HCl (Benadryl) 25 mg Q6H PRN PO ITCHING; Start 05/12/19 at 08:00; Status UNV Dexamethasone (Decadron) 10 mg ONCE ONCE IV ; Start 05/12/19 at 08:00; Stop 05/12/19 at 08:01; Status UNV Hydromorphone HCl (Dilaudid) 0.5 mg Q3H PRN IV BREAKTHROUGH PAIN; Start 05/12/19 at 08:00; Status UNV MICHELLE WILLOUGHBY MD May 12, 2019 08:33
[2019-05-12] MEDS: GABAPENTIN 300 MG CAP PO SCH ×2 (09:17→20:50)
[2019-05-12] MEDS: DOCUSATE SODIUM 100 MG CAP PO SCH ×2 (09:18→20:50)
[2019-05-12] MEDS ORDERED: DEXAMETHASONE 10 MG/ML 1 ML INJ IV ONE (10:00)
[2019-05-12] MEDS ORDERED: HYDROmorphONE 0.5 MG/0.5 ML SYG IV PRN (14:00)
[2019-05-12] MEDS: HYDROCODONE/APAP (5/325) TAB PO PRN ×2 (14:09→18:27)
[2019-05-12 14:54] VITALS: BP 126/72; PULSE 88; RESP 20
[2019-05-12] MEDS: CYCLOBENZAPRINE 10 MG TAB PO PRN (16:01)
[2019-05-12 19:35] VITALS: BP 103/71; PULSE 81; RESP 20
[2019-05-12] MEDS: ATORVASTATIN 10 MG TAB PO SCH (20:50)
[2019-05-12] MEDS: TOPIRAMATE 25 MG TAB PO SCH (20:50)
[2019-05-12] MEDS: NACL 0.9% 3 ML SYG IV SCH ×2 (21:47→21:50)
[2019-05-13 02:15] VITALS: BP 113/68; PULSE 77; RESP 18
[2019-05-13] MEDS: D5W-0.45 NACL + KCL 20 MEQ 1,000 ML IV SCH (05:02)
[2019-05-13] MEDS: HYDROCODONE/APAP (5/325) TAB PO PRN (06:15)
[2019-05-13 07:20] VITALS: BP 109/72; PULSE 76; RESP 16
--- NOTE | 2019-05-13 07:59 | CONS ---
Assessment/Plan Assessment/Plan Assessment/Plan (Daily) 1. Post op lumbar back surgery with less left groin and thigh pain. 2. Hyperlipidemia, on statin rx 3. Overall improved, home per ortho and PT Consultation Date/Type/Reason Admit Date/Time May 10, 2019 at 06:20 Initial Consult Date Date/Time of Note DATE: 05/13/19 TIME: 07:58 Detailed Summary Respiratory: No shortness of breath Cardiovascular: No chest pain, No lightheadedness, No palpitations Gastrointestinal: No pain, No nausea, No vomiting Genitourinary: no complaints Musculoskeletal: back pain (is less, left groin and thight pain is a bit better) Exam/Review of Systems Exam Vitals Vital Signs Date Temp Pulse Resp B/P (MAP) Pulse Ox O2 O2 Flow FiO2 Time Delivery Rate 05/13/19 98.7 76 16 109/72 100 Room Air 07:20 (84) 05/12/19 2.0 01:42 Intake and Output 05/12/19 05/12/19 05/13/19 1515:00 23:00 07:00 IntakeIntake Total 1400 ml OutputOutput Total 1200 ml 400 ml 500 ml BalanceBalance 200 ml -400 ml -500 ml Neck: No jvd Respiratory: clear to auscultation Cardiovascular: regular rate and rhythm Gastrointestinal: soft Extremities: No edema (and no calf tend) Results Result Diagram: 05/12/1944205/12/19442 Medications Medication Current Medications Acetaminophen/ Hydrocodone Bitart ([place] (5/325)) 1 tab Q4H PRN PO .PAIN 1-5; Start 05/10/19 at 14:00 Acetaminophen/ Hydrocodone Bitart ([place] (5/325)) 2 tab Q4H PRN PO .PAIN 6-10 Last administered on 05/13/19at 06:15; Admin Dose 2 TAB; Start 05/10/19 at 14:00 Prochlorperazine (Compazine) 10 mg Q4H PRN PO NAUSEA/VOMITING; Start 05/10/19 at 14:00 Ondansetron HCl (Zofran Inj) 4 mg Q6H PRN IV NAUSEA/VOMITING Last administered on 05/10/19at 18:10; Admin Dose 4 MG; Start 05/10/19 at 14:00 Al Hydrox/Mg Hydrox/Simethicone (Mag-Al Plus) 15 ml Q4H PRN PO .CONSTIPATION; Start 05/10/19 at 14:00 Docusate Sodium (Colace) 100 mg BID PO Last administered on 05/12/19 20:50; Admin Dose 100 MG; Start 05/11/19 at 09:00 Acetaminophen (Tylenol Tab) 650 mg Q4H PRN PO TEMP GREATER THAN 101F OR PAL; Start 05/10/19 at 14:00 IV Flush (NS 3 ml) 3 ml PER PROTOCOL IV Last administered on 05/12/19 21:50; Admin Dose 3 ML; Start 05/10/19 at 14:00 Naloxone HCl (Narcan) 0.2 mg Q2M PRN IV RR 8 BREATHS/MIN OR LESS; Start 05/10/19 at 14:00 Cyclobenzaprine HCl (Flexeril) 10 mg BID PRN PO MUSCLE SPASMS Last administered on 05/12/19 16:01; Admin Dose 10 MG; Start 05/10/19 at 16:00 Gabapentin (Neurontin) 300 mg BID PO Last administered on 05/12/19 20:50; Admin Dose 300 MG; Start 05/10/19 at 21:00 Sumatriptan Succinate (Imitrex) 100 mg DAILY PRN PO MIGRAINE; Start 05/11/19 at 16:30 Atorvastatin Calcium (Lipitor) 10 mg QHS PO Last administered on 05/12/19 20:50; Admin Dose 10 MG; Start 05/10/19 at 21:00 Topiramate (Topamax) 50 mg HS PO Last administered on 05/12/19 20:50; Admin Dose 50 MG; Start 05/10/19 at 21:00 Diphenhydramine HCl (Benadryl) 25 mg Q6H PRN PO ITCHING; Start 05/12/19 at 08:00 Hydromorphone HCl (Dilaudid) 0.5 mg Q3H PRN IV BREAKTHROUGH PAIN Last administered on 05/12/19 21:48; Admin Dose 0.5 MG; Start 05/12/19 at 14:00 MICHELLE WILLOUGHBY MD May 13, 2019 07:59
[2019-05-13] MEDS ORDERED: DEXAMETHASONE 10 MG/ML 1 ML INJ IV ONE (08:00)
[2019-05-13] MEDS: DOCUSATE SODIUM 100 MG CAP PO SCH ×2 (08:17→20:31)
[2019-05-13] MEDS: GABAPENTIN 300 MG CAP PO SCH ×2 (08:17→20:31)
[2019-05-13] MEDS: CYCLOBENZAPRINE 10 MG TAB PO PRN ×2 (08:17→20:59)
[2019-05-13] MEDS: HYDROCODONE/APAP (10/325) TAB PO PRN ×4 (10:24→22:18)
--- NOTE | 2019-05-13 13:35 | PDOCDIS ---
Discharge Instructions CONDITION [id number] Patient Condition: [id number] Good HOME CARE INSTRUCTIONS: [id number] Diet Instructions: [id number] Regular ACTIVITY: [id number] Activity Restrictions: [id number] Avoid heavy lifting Avoid Heavy Housework [id number] Bathing Restrictions: [id number] Shower FOLLOW UP/APPOINTMENTS Follow-up Plan Follow-up with Dr. Singh in 2 weeks BLAIRE SINGH MD May 13, 2019 13:35
--- NOTE | 2019-05-13 13:43 | CONS ---
Consultation Date/Type/Reason Admit Date/Time May 10, 2019 at 06:20 Initial Consult Date Date/Time of Note DATE: 05/13/19 TIME: 13:40 24 HR Interval Summary Free Text/Dictation S: 44 yo Female POD#3 s/p L4-5 lateral (left side up) interbody fusion w/ PSIF. patient tolerating a regular diet. Pain controlled w/ PO Placida but requiring IV dilaudid for breakthrough pain. No acute events over-night. Complains of left hip pain w/ weakness at side of approach. CT of L-spine ordered to eval hardware placement given HF weakness. O: Vital Signs Date Temp Pulse Resp B/P (MAP) Pulse Ox O2 O2 Flow FiO2 Time Delivery Rate 05/11/19 17 06:02 Gen: AAOx3, NAD Spine: dressing C/D/I, 5/5 Right HF/KE/TA/GS, Left LE 3/5 HF, 3+/5 KE, 4/5 TA/GS/EHL CT L-spine: Hardware in good position w/o recurrent stenosis. A/P: 44 yo Female POD#3 s/p L4-5 lateral (left side up) interbody fusion w/ PSIF. Left HF and KE weakness likely secondary to approach (left sided transpsas ) 1. Continue PO Placida w/ Dilaudid for breakthrough 2. IV Decadron 3. OOB w/ PT 4. likely D/C mohsen after cleared by PT and pain controlled w/ PO pain meds. Exam/Review of Systems Exam Vitals Vital Signs Date Temp Pulse Resp B/P (MAP) Pulse Ox O2 O2 Flow FiO2 Time Delivery Rate 05/13/19 98.7 76 16 109/72 100 Room Air 07:20 (84) 05/12/19 2.0 01:42 Intake and Output 05/12/19 05/12/19 05/13/19 1515:00 23:00 07:00 IntakeIntake Total 1400 ml OutputOutput Total 1200 ml 400 ml 500 ml BalanceBalance 200 ml -400 ml -500 ml Results Result Diagram: 05/12/19 0443 05/12/19442 Medications Medication Current Medications Acetaminophen/ Hydrocodone Bitart ([place] (5/325)) 1 tab Q4H PRN PO .PAIN 1-5; Start 05/10/19 at 14:00 Prochlorperazine (Compazine) 10 mg Q4H PRN PO NAUSEA/VOMITING; Start 05/10/19 at 14:00 Ondansetron HCl (Zofran Inj) 4 mg Q6H PRN IV NAUSEA/VOMITING Last administered on 05/10/19at 18:10; Admin Dose 4 MG; Start 05/10/19 at 14:00 Al Hydrox/Mg Hydrox/Simethicone (Mag-Al Plus) 15 ml Q4H PRN PO .CONSTIPATION; Start 05/10/19 at 14:00 Docusate Sodium (Colace) 100 mg BID PO Last administered on 05/13/19 08:17; A dmin Dose 100 MG; Start 05/11/19 at 09:00 Acetaminophen (Tylenol Tab) 650 mg Q4H PRN PO TEMP GREATER THAN 101F OR PAL; Start 05/10/19 at 14:00 IV Flush (NS 3 ml) 3 ml PER PROTOCOL IV Last administered on 05/12/19at 21:50; Admin Dose 3 ML; Start 05/10/19 at 14:00 Naloxone HCl (Narcan) 0.2 mg Q2M PRN IV RR 8 BREATHS/MIN OR LESS; Start 05/10/19 at 14:00 Cyclobenzaprine HCl (Flexeril) 10 mg BID PRN PO MUSCLE SPASMS Last administered on 05/13/19at 08:17; Admin Dose 10 MG; Start 05/10/19 at 16:00 Gabapentin (Neurontin) 300 mg BID PO Last administered on 05/13/19at 08:17; Admin Dose 300 MG; Start 05/10/19 at 21:00 Sumatriptan Succinate (Imitrex) 100 mg DAILY PRN PO MIGRAINE; Start 05/11/19 at 16:30 Atorvastatin Calcium (Lipitor) 10 mg QHS PO Last administered on 05/12/19at 20:50; Admin Dose 10 MG; Start 05/10/19 at 21:00 Topiramate (Topamax) 50 mg HS PO Last administered on 05/12/19at 20:50; Admin Do se 50 MG; Start 05/10/19 at 21:00 Diphenhydramine HCl (Benadryl) 25 mg Q6H PRN PO ITCHING; Start 05/12/19 at 08:00 Hydromorphone HCl (Dilaudid) 0.5 mg Q3H PRN IV BREAKTHROUGH PAIN Last administered on 05/12/19at 21:48; Admin Dose 0.5 MG; Start 05/12/19 at 14:00 Acetaminophen/ Hydrocodone Bitart ([place] ()) 1 tab Q4H PRN PO MODERATE PAIN LEVEL 4-6 Last administered on 05/13/19at 10:24; Admin Dose 1 TAB; Start 05/13/19 at 08:00 BLAIRE SINGH MD May 13, 2019 13:43
[2019-05-13 19:15] VITALS: BP 113/68; PULSE 84; RESP 20
[2019-05-13] MEDS: TOPIRAMATE 25 MG TAB PO SCH (20:31)
[2019-05-13] MEDS: ATORVASTATIN 10 MG TAB PO SCH (20:31)
[2019-05-14] MEDS: HYDROCODONE/APAP (10/325) TAB PO PRN ×2 (02:26→06:21)
[2019-05-14 02:35] VITALS: BP 107/75; PULSE 81; RESP 20
[2019-05-14 08:04] VITALS: BP 101/55; PULSE 72; RESP 18
[2019-05-14] MEDS: DOCUSATE SODIUM 100 MG CAP PO SCH (08:26)
[2019-05-14] MEDS: GABAPENTIN 300 MG CAP PO SCH (08:26)
[2019-05-14] MEDS: CYCLOBENZAPRINE 10 MG TAB PO PRN (08:31)
--- NOTE | 2019-05-14 08:32 | CONS ---
Assessment/Plan Assessment/Plan Assessment/Plan (Daily) 1. Post op lumbar spine surgery, now wiht less pain and more mobile. 2. Hyperlipidemia on therapy 3. Can dc today if ok with pt and ot and surg Consultation Date/Type/Reason Admit Date/Time May 10, 2019 at 06:20 Initial Consult Date Date/Time of Note DATE: 05/14/19 TIME: 08:30 Detailed Summary Respiratory: No cough, No shortness of breath Cardiovascular: No chest pain, No orthopenea Gastrointestinal: No nausea, No vomiting Genitourinary: no complaints Musculoskeletal: back pain (is less as is right groin and thigh pain) Exam/Review of Systems Exam Vitals Vital Signs Date Temp Pulse Resp B/P (MAP) Pulse Ox O2 O2 Flow FiO2 Time Delivery Rate 05/14/19 98.3 72 18 101/55 97 08:04 (70) 05/14/19 Room Air 02:35 05/12/19 2.0 01:42 Intake and Output 05/13/19 05/13/19 05/14/19 1515:00 23:00 07:00 IntakeIntake Total 500 ml 540 ml BalanceBalance 500 ml 540 ml Neck: No jvd Respiratory: clear to auscultation Cardiovascular: regular rate and rhythm Gastrointestinal: soft Extremities: No edema, No tenderness Results Result Diagram: 05/12/1944205/12/19442 Medications Medication Current Medications Acetaminophen/ Hydrocodone Bitart ([place] (5/325)) 1 tab Q4H PRN PO .PAIN 1-5; Start 05/10/19 at 14:00 Prochlorperazine (Compazine) 10 mg Q4H PRN PO NAUSEA/VOMITING; Start 05/10/19 at 14:00 Ondansetron HCl (Zofran Inj) 4 mg Q6H PRN IV NAUSEA/VOMITING Last administered on 05/10/19at 18:10; Admin Dose 4 MG; Start 05/10/19 at 14:00 Al Hydrox/Mg Hydrox/Simethicone (Mag-Al Plus) 15 ml Q4H PRN PO .CONSTIPATION Last administered on 05/13/19at 22:18; Admin Dose 15 ML; Start 05/10/19 at 14:00 Docusate Sodium (Colace) 100 mg BID PO Last administered on 05/14/19at 08:26; Admin Dose 100 MG; Start 05/11/19 at 09:00 Acetaminophen (Tylenol Tab) 650 mg Q4H PRN PO TEMP GREATER THAN 101F OR PAL; Start 05/10/19 at 14:00 IV Flush (NS 3 ml) 3 ml PER PROTOCOL IV Last administered on 05/12/19 21:50; Admin Dose 3 ML; Start 05/10/19 at 14:00 Naloxone HCl (Narcan) 0.2 mg Q2M PRN IV RR 8 BREATHS/MIN OR LESS; Start 05/10/19 at 14:00 Cyclobenzaprine HCl (Flexeril) 10 mg BID PRN PO MUSCLE SPASMS Last administered on 05/13/19 20:59; Admin Dose 10 MG; Start 05/10/19 at 16:00 Gabapentin (Neurontin) 300 mg BID PO Last administered on 05/14/19 08:26; Admin Dose 300 MG; Start 05/10/19 at 21:00 Sumatriptan Succinate (Imitrex) 100 mg DAILY PRN PO MIGRAINE; Start 05/11/19 at 16:30 Atorvastatin Calcium (Lipitor) 10 mg QHS PO Last administered on 05/13/19 20:31; Admin Dose 10 MG; Start 05/10/19 at 21:00 Topiramate (Topamax) 50 mg HS PO Last administered on 05/13/19 20:31; Admin Dose 50 MG; Start 05/10/19 at 21:00 Diphenhydramine HCl (Benadryl) 25 mg Q6H PRN PO ITCHING; Start 05/12/19 at 08:00 Hydromorphone HCl (Dilaudid) 0.5 mg Q3H PRN IV BREAKTHROUGH PAIN Last administered on 05/12/19 21:48; Admin Dose 0.5 MG; Start 05/12/19 at 14:00 Acetaminophen/ Hydrocodone Bitart ([place] (10/325)) 1 tab Q4H PRN PO MODERATE PAIN LEVEL 4-6 Last administered on 05/14/19 06:21; Admin Dose 1 TAB; Start 05/13/19 at 08:00 MICHELLE WILLOUGHBY MD May 14, 2019 08:32
== END 2019-05-14 10:50 | disposition home or self-care (01) | DRG 455 ==
LOC: REC 06:20 → MS1 16:21
PROVIDERS: ADMIT Orthopaedic Surgery; ATTEND Orthopaedic Surgery
PROC: 0SG00K1 Fusion of Lumbar Vertebral Joint with Nonautologous Tissue Substitute, Posterior Approach, Posterior Column, Open Approach (ICD-10-PCS; 2019-05-10)
PROC: 4A11X4G Monitoring of Peripheral Nervous Electrical Activity, Intraoperative, External Approach (ICD-10-PCS; 2019-05-10)
PROC: 0SG00A0 Fusion of Lumbar Vertebral Joint with Interbody Fusion Device, Anterior Approach, Anterior Column, Open Approach (ICD-10-PCS; principal; 2019-05-10 07:30)
DX: M43.16 Spondylolisthesis, lumbar region (principal); M48.061 Spinal stenosis, lumbar region without neurogenic claudication; M54.16 Radiculopathy, lumbar region; E78.5 Hyperlipidemia, unspecified
CPT/HCPCS: 72114; 72131; 80048; 83735; 84100; 85025; 86850; 86900; 86901; 87086; 97110; 97116; 97162; 97530; J0171; J0690; J1100; J1170; J2175; J2250; J2370; J2405; J2795; J3010; J3480; J7120; L0639